=== PATIENT | female | born 1985 | race Caucasian/White ===

== ENCOUNTER 2024-04-04 18:44 | Emergency (ER) | payer OTHER, SELFPAY ==
[2024-04-04 18:54] VITALS: BP 127/83
[2024-04-04 20:47] VITALS: BMI 28.3
--- NOTE | 2024-04-04 21:23 | ED.GENMED ---
History of Present Illness
General
Chief Complaint: Skin Problem
Source: patient
Time Seen by Provider: 04/04/24 21:02
History of Present Illness
History of Present Illness:
38-year-old female presents to the emergency room complaining of a injury to her left middle finger. Patient was cutting her son's hair when she nicked the tip of her finger. It would not stop bleeding prompting her visit to the emergency room.
Patient is right-hand dominant.
Phy Exam
Physical Exam
Physical Exam:
General: Awake, Alert, Oriented X3. No acute distress.
Vitals: unremarkable
Head: Atraumatic
Eyes: Pupils equal, EOMI
Throat: Airway intact, no exudates
Neck: Trachea midline
Extremities: pulses equal b/l, no . Small tissue avulsion noted left middle finger. Oozing noted.
Course
Orders/Labs/Results
Orders:
Orders
04/04/24 21:24
Tetanus/Diphth/Acelpertussis [Adacel] 0.5 ml IM .ONCE ONE
Vital Signs
Initial and Last Documented VS:
Initial Vital Signs
Temp Pulse Resp BP Pulse Ox
98.2 F 67 16 127/83 99
04/04/24 18:54 04/04/24 18:54 04/04/24 18:54 04/04/24 18:54 04/04/24 18:54
Last Documented Vital Signs
Temp Pulse Resp BP Pulse Ox
98.2 F 67 16 127/83 99
04/04/24 18:54 04/04/24 18:54 04/04/24 18:54 04/04/24 18:54 04/04/24 18:54
MDM/Problems Addressed
Differential Diagnosis Includes:
Fingertip avulsion, laceration
MDM/Problems Addressed:
A small amount of tissue was avulsed off the tip of her finger. Bleeding not well-controlled at home. Wound irrigated and with lidocaine and epinephrine. Surgifoam dressing been placed with adequate bleeding control. Patient advised to leave the
dressing in place for 48 hours.
*Pulse Oximetry
Patient hypoxic: no
*Critical Care Note
Total Time (30-74mins, 75-104mins- exclusive of procedures): Not Applicable
ED Attending Note
-
Portions of this chart may have been created with voice recognition software.� Occasional wrong word or��sound alike� substitutions may have occurred due to the inherent limitations of voice recognition software.
Discharge Plan
Departure
Patient Disposition: Home (Routine Discharge)
Date of Disposition: 04/04/24
Time of Disposition: 21:23
Patient with high blood pressure during this ER visit?: No
Condition: Good
Discharge Problem:
Avulsion of fingertip
Instructions: Wound Care (DC)
Interventions
Interventions:
*Risk Screen - Suicide Last Done: 04/04/24 18:54
*General Assessment Last Done: 04/04/24 18:54
*Neglect/Abuse Screening Last Done: 04/04/24 20:47
ED- Fall Risk Assessment Last Done: 04/04/24 18:54
*ED COVID-19 Vaccine History Last Done: 04/04/24 18:54
*Nursing Disposition Last Done: 04/04/24 21:31
ED-Skin Assessment Last Done: 04/04/24 20:46
Discharge Date and Time
Discharge Date/Time: 04/04/24 21:38
Print Language: BRITISH
[2024-04-04] MEDS: ADACEL 0.5 ML IM (21:32)
== END 2024-04-04 21:38 | disposition home or self-care (01) ==
LOC: EMR 18:44
PROVIDERS: EMERGENCY PHYSICIAN Emergency Medicine
DX: S61.213A Laceration without foreign body of left middle finger without damage to nail, initial encounter (principal); W27.8XXA Contact with other nonpowered hand tool, initial encounter; Y93.89 Activity, other specified; Z23 Encounter for immunization
CPT/HCPCS: 99282; 90471; 90715